=== PATIENT | male | born 1980 | race Caucasian/White ===

== ENCOUNTER 2016-11-02 22:10 | Emergency (ER) | payer OTHER ==
[2016-11-02] MEDS ORDERED: Lidocaine 2% JELLY* 10 ML JELLY TOPICAL ONE (22:47)
[2016-11-02 23:25] LABS: Urine Bilirubin Negative (Negative); Urine Glucose Negative (Negative); Urine Nitrite Negative (Negative)
[2016-11-03 01:24] VITALS: BP 126/81
--- NOTE | 2016-11-03 02:30 | ED ---
I, Oh,Soran, scribed for Jude Green MD on 11/02/16 at 2249 . GI/ HPI - HPI Summary HPI Summary: This 36 y/o male presents to ED from [facility] for sudden onset of difficulty urination and urinary retention since this evening. Last normal urination was this afternoon. Positive burning and pain with urination, hemorrhoid, abd distention. Pt reports that he was having trouble with cath. Negative enlarged prostate. Pt denies any recent cold symptoms. Pt is noted with 1 L of fluid in bladder scan. PMHx is negative for BPH. - History of Current Complaint Chief Complaint: EDUrogenitalProblems Time Seen by Provider: 11/02/16 22:40 Stated Complaint: UNABLE TO URINATE Hx Obtained From: Patient Onset/Duration: Started Hours Ago, Atraumatic, Still Present Timing: Constant Pain Intensity: 10 Location of Pain: Suprapubic Pain Characteristics: Dull, Burning Associated Signs and Symptoms: Negative: Fever Aggravating Factor(s): Voiding Alleviating Factor(s): Nothing - Allergy/Home Medications Allergies/Adverse Reactions: Allergies Allergy/AdvReac Type Severity Reaction Status Date / Time Penicillins [PCN] Allergy Swelling Verified 11/02/16 22:28 PMH/Surg Hx/FS Hx/Imm Hx History: Denies: Hx Benign Prostatic Hyperplasia Infectious Disease History: No Infectious Disease History: Denies: Traveled Outside the [place] in Last 30 Days Review of Systems Negative: Fever Negative: Cough Positive: dysuria - burning and pain with urination All Other Systems Reviewed And Are Negative: Yes Physical Exam - Summary Physical Exam Summary: The patient is well-nourished in no acute distress and in no acute pain. The skin is warm and dry and skin color reflects adequate perfusion. HEENT: The head is normocephalic and atraumatic. The pupils are equal and reactive. The conjunctivae are clear and without drainage. Nares are patent and without drainage. Mouth reveals moist mucous membranes and the throat is without erythema and exudate. The external ears are intact. The ear canals are patent and without drainage. The tympanic membranes are intact. Neck is supple with full range of motion and non-tender. There are no carotid bruits. There is no neck vein distension. Respiratory: Chest is non-tender. Lungs are clear to auscultation and breath sounds are symmetrical and equal. Cardiovascular: Hear is regular rate and rhythm. There is no murmur or rub auscultated. There is no peripheral edema and pulses are symmetrical and equal. Abdomen: The abdomen is soft and non-tender. There are normal bowel sounds heard in all four quadrants and there is no organomegaly palpated. Bladder distended. Musculoskeletal: There is no back pain noted. Extremities are non-tender with full range of motion. There is good capillary refill. There is no peripheral edema or calf tenderness elicited. Neurological: Patient is alert and oriented to person, place and time. The patient has symmetrical motor strength in all four extremities. Cranial nerves are grossly intact. Deep tendon reflexes are symmetrical and equal in all four extremities. Psychiatric: The patient has an appropriate affect and does not exhibit any anxiety or depression. Triage Information Reviewed: Yes Vital Signs On Initial Exam: Initial Vitals Temp Pulse Resp BP Pulse Ox 97.3 F 80 20 122/80 99 11/02/16 22:12 11/02/16 22:12 11/02/16 22:12 11/02/16 22:12 11/02/16 22:12 Vital Signs Reviewed: Yes Diagnostics - Vital Signs Vital Signs Temp Pulse Resp BP Pulse Ox 11/02/16 22:27 97.9 F 82 16 134/88 93 11/02/16 22:12 97.3 F 80 20 122/80 99 - Laboratory Lab Results: Lab Results 11/02/16 Range/Units 23:15 Urine Color Yellow Urine Appearance Clear Urine pH 7.0 (5-9) Ur Specific [place] 1.012 (1.010-1.030) Urine Protein Negative (Negative) Urine Ketones Negative (Negative) Urine Blood Negative (Negative) Urine Nitrate Negative (Negative) Urine Bilirubin Negative (Negative) Urine Urobilinogen Negative (Negative) Ur Leukocyte Esterase Negative (Negative) Urine Glucose Negative (Negative) Lab Statement: Any lab studies that have been ordered have been reviewed, and results considered in the medical decision making process. Re-Evaluation - Re-Evaluation First Eval Re-Evaluation Time: 01:17 Comment: Dr. Green in room to update pt on UA. Hard copy of UA is provided to pt. GIGU Course/Dx - Course Assessment/Plan: This 36 y/o male presents to ED for acute onset of urinary retention since this evening. Pt reports last normal urination earlier this afternoon. Pt denies any PMHx of BPH. Barnes cath was ordered, and UA was obtained with wnl UA. - Diagnoses Differential Diagnoses - Male: Urinary Tract Infection, Other Provider Diagnoses: Urinary retention Discharge - Discharge Plan Condition: Stable Disposition: HOME Patient Education Materials: Urinary Retention in Men (ED) Referrals: Don Otto MD [Medical Doctor] - 2 Days Additional Instructions: Please keep your Barnes cath in. The documentation as recorded by the Peter gonzales Soohyun accurately reflects the service I personally performed and the decisions made by me, Jude Green MD.
== END 2016-11-03 01:43 | disposition home or self-care (01) ==
LOC: ED 22:10
DX: R33.9 Retention of urine, unspecified (principal)
CPT/HCPCS: 81003; 99282; A9270-GY

== ENCOUNTER 2016-11-05 09:50 | Emergency (ER) | payer OTHER ==
[2016-11-05] MEDS ORDERED: NS 0.9% 1000 ML* 1,000 ML IV ONE (10:54)
[2016-11-05 11:25] LABS: Urine Bilirubin Negative (Negative); Urine Glucose Negative (Negative); Urine Nitrite Negative (Negative)
[2016-11-05 12:39] LABS: Hematocrit 46 % (42-52); Hemoglobin 15.7 g/dl (14.0-18.0); Mean Corpuscular HGB Conc 34 g/dl (31-36); Mean Corpuscular Hemoglobin 30 pg (27-31); Mean Corpuscular Volume 87 fL (80-94); Mean Platelet Volume 10 um3 (7.4-10.4); Red Blood Count 5.31 10^6/ul (4.0-5.4); Red Cell Distribution Width 13 % (10.5-15)
[2016-11-05 12:56] LABS: Albumin 4.2 g/dL (3.2-5.2); BUN/Creatinine Ratio 19.4 (8-20); Calcium 9.4 mg/dL (8.6-10.3); EGFR African American 158.9 (>60); EGFR Non-African American 123.5 (>60); Globulin 2.4 g/dL (2-4); Potassium 3.8 mmol/L (3.5-5.0); Total Bilirubin 1.1 mg/dL (0.2-1.0); Total Protein 6.6 g/dL (6.4-8.9)
[2016-11-05 13:32] VITALS: BP 153/92
--- NOTE | 2016-11-06 07:28 | ED ---
Daniel Vallejo Aidan, scribed for Jerome Lindsay MD on 11/05/16 at 1138 . GI/ HPI - HPI Summary HPI Summary: 36 y/o male presents to the ED with a complaint of acute, moderate episodes of an inability to urinate. Symptoms began 3 days ago. He had a arriaga catheter placed, which was taken out yesterday. At 0230 this morning and while in the ED today he urinated. Associated symptoms include dysuria described as a burning sensation. - History of Current Complaint Chief Complaint: EDUrogenitalProblems Time Seen by Provider: 11/05/16 10:13 Stated Complaint: CAN'T URINATE Hx Obtained From: Patient Onset/Duration: Started Days Ago, Still Present - dysuria still present Timing: Intermittent, Lasting Days Severity: Moderate Current Severity: Moderate Location of Pain: None - dysuria Additional Locations for Males: Penis - dysuria Associated Signs and Symptoms: Positive: Other: - dysuria, inability to urinate Aggravating Factor(s): Urination - dysuria Alleviating Factor(s): Nothing - unknown - Allergy/Home Medications Allergies/Adverse Reactions: Allergies Allergy/AdvReac Type Severity Reaction Status Date / Time Penicillins [PCN] Allergy Swelling Verified 11/02/16 22:28 PMH/Surg Hx/FS Hx/Imm Hx History: Denies: Hx Benign Prostatic Hyperplasia Infectious Disease History: Denies: Traveled Outside the [place] in Last 30 Days - Family History Known Family History: Positive: Hypertension - Social History Occupation: Unemployed Lives: Alone Alcohol Use: None Substance Use Type: Reports: None Smoking Status (MU): Former Smoker Review of Systems Constitutional: Negative Eyes: Negative ENT: Negative Cardiovascular: Negative Respiratory: Negative Gastrointestinal: Negative Positive: see HPI, burning, dysuria, pain, other - inability to urinate. Negative: no symptoms reported, discharge, frequency, flank pain, hematuria, incontinence, urgency Musculoskeletal: Negative Skin: Negative Neurological: Negative Psychological: Normal All Other Systems Reviewed And Are Negative: Yes Physical Exam - Summary Physical Exam Summary: VITAL SIGNS: Reviewed. GENERAL: Patient is a well-developed and nourished (MALE) who is lying comfortable in the stretcher. Patient is not in any acute respiratory distress. HEAD AND FACE: No signs of trauma. No ecchymosis, hematomas or skull depressions. No sinus tenderness. EYES: PERRLA, EOMI x 2, No injected conjunctiva, no nystagmus. EARS: Hearing grossly intact. Ear canals and tympanic membranes are within normal limits. MOUTH: Oropharynx within normal limits. NECK: Supple, trachea is midline, no adenopathy, no JVD, no carotid bruit, no c- spine tenderness, neck with full ROM. CHEST: Symmetric, no tenderness at palpation LUNGS: Clear to auscultation bilaterally. No wheezing or crackles. CVS: Regular rate and rhythm, S1 and S2 present, no murmurs or gallops appreciated. ABDOMEN: Soft. Positive mild abdominal tenderness. Positive slight abdominal distention. No rebound no guarding, and no masses palpated. Bowel sounds are normal. EXTREMITIES: FROM in all major joints, no edema, no cyanosis or clubbing. NEURO: Alert and oriented x 3. No acute neurological deficits. Speech is normal and follows commands. SKIN: Dry and warm Triage Information Reviewed: Yes Vital Signs On Initial Exam: Initial Vitals Temp Pulse Resp BP Pulse Ox 98.3 F 85 16 111/95 98 11/05/16 10:10 11/05/16 10:10 11/05/16 10:10 11/05/16 10:10 11/05/16 10:10 Vital Signs Reviewed: Yes Diagnostics - Vital Signs Vital Signs Temp Pulse Resp BP Pulse Ox 11/05/16 10:10 98.3 F 85 16 111/95 98 - Laboratory Lab Results: Lab Results 11/05/16 Range/Units 11:10 Urine Color Straw Urine Appearance Clear Urine pH 7.0 (5-9) Ur Specific [place] 1.004 L (1.010-1.030) Urine Protein Negative (Negative) Urine Ketones Negative (Negative) Urine Blood Negative (Negative) Urine Nitrate Negative (Negative) Urine Bilirubin Negative (Negative) Urine Urobilinogen Negative (Negative) Ur Leukocyte Esterase Negative (Negative) Urine Glucose Negative (Negative) Result Diagrams: 11/05/16 12:17 11/05/16 12:17 Lab Statement: Any lab studies that have been ordered have been reviewed, and results considered in the medical decision making process. GIGU Course/Dx - Course Course Of Treatment: 36 y/o male presents to the ED with a complaint of acute, moderate episodes of an inability to urinate. Symptoms began 3 days ago. He had a arriaga catheter placed, which was taken out yesterday. At 0230 this morning and while in the ED today he urinated. Associated symptoms include dysuria described as a burning sensation. Tests results within normal limits. Bladder scan shows residual urine of 600ccs. We placed a urine arriaga catheter and he expressed approximately 900ccs of urine. At this point, the patient is much more comfortable. His urine doesnt show a UTI. He will be discharged back to [facility] and follow up with urology. He will be discharged with a arriaga catheter in place. - Diagnoses Provider Diagnoses: Urinary retention Discharge - Discharge Plan Condition: Stable Disposition: HOME Discharge Disposition Comment: Please follow up with your primary care provider within 3 days. Patient Education Materials: Urinary Retention in Men (ED) Referrals: Non Staff,Doctor [Primary Care Provider] - The documentation as recorded by the Daniel gonzales Aidan accurately reflects the service I personally performed and the decisions made by me, Jerome Lindsay MD.
== END 2016-11-05 13:31 | disposition home or self-care (01) ==
LOC: ED 09:50
DX: R33.9 Retention of urine, unspecified (principal); R30.0 Dysuria; Z87.891 Personal history of nicotine dependence
CPT/HCPCS: 36415; 80053; 81003; 83605; 85025; 99282